=== PATIENT | male | born 1965 | race Hispanic/Latino ===

== ENCOUNTER 2021-07-09 00:08 | Emergency (ER) | payer MEDICARE, OTHER ==
[~2021-07-09] VITALS: Ht 172.7 cm; Wt 97.5 kg
[2021-07-09 00:23] LABS: BASOPHILS % 0.4 % (0.0-1.0); EOSINOPHILS # (AUTO) 0.1 (0.0-0.4); EOSINOPHILS % 0.5 % (0.0-6.0); HEMATOCRIT 45.9 % (38.2-49.6); HEMOGLOBIN 15.4 g/dL (14.0-18.0); LYMPHOCYTES # (AUTO) 2.4 (1.0-3.2); LYMPHOCYTES % 25.9 % (18.0-39.1); MEAN CORPUSCULAR HGB CONC 33.6 g/dL (31-35); MEAN CORPUSCULAR VOLUME 92.4 fL (81-99); MONOCYTES % 10.9 % (4.4-11.3); NEUTROPHILS # (AUTO) 5.7 (2.1-6.9); NEUTROPHILS % 61.9 % (38.7-80.0); PLATELET COUNT 180 x10e3/uL (140-360); RED BLOOD COUNT 4.97 x10e6/uL (4.3-5.7); RED CELL DISTRIBUTION WIDTH 12.7 % (11.7-14.4)
[2021-07-09 00:40] LABS: ALBUMIN 3.8 g/dL (3.5-5.0); ALBUMIN/GLOBULIN RATIO 0.9 (0.8-2.0); ANION GAP 13.9 mmol/L (8-16); CALCIUM 9.4 mg/dL (8.4-10.2); CREATININE, SERUM 1.01 mg/dL (0.72-1.25); POTASSIUM 3.9 mmol/L (3.5-5.1)
[2021-07-09 00:44] LABS: CREATINE KINASE MB 0.4 ng/mL (0-5.0)
[2021-07-09 03:25] LABS: CREATINE KINASE 46 IU/L (30-200)
[2021-07-09 05:31] VITALS: BP 132/65
== END 2021-07-09 05:34 | disposition home or self-care (01) ==
LOC: ER 00:17
DX: R07.9 Chest pain, unspecified (principal)
CPT/HCPCS: 36415; 71045; 80053; 82550; 82553; 83880; 84484; 85025; 85379; 93005; 99284

== ENCOUNTER 2024-04-25 23:00 | Inpatient (IN) | payer MEDICARE ==
[~2024-04-25] VITALS: Ht 172.7 cm; Wt 112.8 kg
[2024-04-25] MEDS: ONDANSETRON HCL INJ 2MG/ML 2ML 2 MG/ML VIAL IV STA (23:23)
[2024-04-25 23:34] LABS: BASOPHILS % 0.3 % (0.0-1.0); EOSINOPHILS # (AUTO) 0.1 (0.0-0.4); EOSINOPHILS % 0.5 % (0.0-6.0); HEMATOCRIT 45.8 % (38.2-49.6); HEMOGLOBIN 15.8 g/dL (14.0-18.0); LYMPHOCYTES # (AUTO) 2.6 (1.0-3.2); LYMPHOCYTES % 26.7 % (18.0-39.1); MEAN CORPUSCULAR HGB CONC 34.5 g/dL (31-35); MEAN CORPUSCULAR VOLUME 89.8 fL (81-99); MONOCYTES # (AUTO) 1.2 (0.2-0.8); MONOCYTES % 12.1 % (4.4-11.3); NEUTROPHILS # (AUTO) 5.9 (2.1-6.9); NEUTROPHILS % 59.6 % (38.7-80.0); PLATELET COUNT 187 x10e3/uL (140-360); RED CELL DISTRIBUTION WIDTH 12.5 % (11.7-14.4); WHITE BLOOD COUNT 9.85 x10e3/uL (4.8-10.8)
[2024-04-25] MEDS: DICYCLOMINE HCL 20 MG/2 ML VIAL IM ONE (23:37)
[2024-04-25 23:48] LABS: ALANINE AMINOTRANSFERASE 63 IU/L (0-55); ALBUMIN 3.9 g/dL (3.5-5.0); ALBUMIN/GLOBULIN RATIO 0.9 (0.8-2.0); ALKALINE PHOSPHATASE 94 IU/L (40-150); ANION GAP 15.7 mmol/L (8-16); BILIRUBIN,TOTAL 0.8 mg/dL (0.2-1.2); BLOOD UREA NITROGEN 10 mg/dL (7-26); BUN/CREATININE RATIO 12 (6-25); CALCIUM 9.3 mg/dL (8.4-10.2); CARBON DIOXIDE 24 mmol/L (22-29); CHLORIDE 101 mmol/L (98-107); CREATINE KINASE 43 IU/L (30-200); CREATININE, SERUM 0.84 mg/dL (0.72-1.25); EST GLOMERULAR FILTRATION RATE 100 ML/MIN (>=60); GLUCOSE 198 mg/dL (74-118); POTASSIUM 3.7 mmol/L (3.5-5.1); SODIUM 137 mmol/L (136-145); TOTAL PROTEIN 8.4 g/dL (6.5-8.1)
[2024-04-26] VITALS (9 sets, daily range): BP systolic 134–151; BP diastolic 88; PULSE 75–95; RESP 14–22; TEMP 97.9–98.2; O2SAT 92–96
[2024-04-26] MEDS ORDERED: IOPAMIDOL 370 MG/ML 100 ML INFUS..BTL INJ ONE (00:13)
[2024-04-26 00:22] LABS: TROPONIN I < 0.001 ng/mL (0-0.300)
[2024-04-26] MEDS ORDERED: DEXTROSE 50% SYRINGE 50 ML IV PRN (01:45)
[2024-04-26] MEDS ORDERED: ONDANSETRON HCL INJ 2MG/ML 2ML 2 MG/ML VIAL IV PRN (01:45)
[2024-04-26] MEDS: SODIUM CHLORIDE 0.9% 1000ML 1,000 ML IV SCH ×2 (02:27→20:11)
[2024-04-26] MEDS: INSULIN REGULAR, HUMAN 100 UNIT/1 ML SQ SCH (07:30)
[2024-04-26] MEDS ORDERED: MIDAZOLAM HCL 2 MG/2 ML VIAL ONE (11:51)
[2024-04-26] MEDS ORDERED: FENTANYL CITRATE/PF 100MCG/2 ML INJ ONE (11:51)
[2024-04-26] MEDS ORDERED: SEVOFLURANE INHAL SOLN 250 ML PEN BTL ONE (11:52)
[2024-04-26] MEDS ORDERED: BUPIVACAINE HCL 0.5% INJ 30 ML VIAL INJ ONE (12:12)
[2024-04-26] MEDS ORDERED: NEOSTIGMINE 1 MG/ML 10ML VIAL ONE (13:43)
[2024-04-26] MEDS ORDERED: ROCURONIUM BROMIDE 10 MG/ML 5ML VIAL IV ONE (13:43)
[2024-04-26] MEDS ORDERED: LIDOCAINE HCL 2% LOCAL INJ 5 ML SDV VIAL INJ ONE (13:43)
[2024-04-26] MEDS ORDERED: METOCLOPRAMIDE HCL 10 MG/2ML VIAL ONE (13:43)
[2024-04-26] MEDS ORDERED: PROPOFOL IV EMULSION 10 MG/ML 20 ML VIAL ONE (13:43)
[2024-04-26] MEDS ORDERED: GLYCOPYRROLATE INJ 0.2 MG/ML VIAL ONE (13:43)
[2024-04-26] MEDS ORDERED: ONDANSETRON HCL INJ 2MG/ML 2ML 2 MG/ML VIAL ONE (13:43)
[2024-04-26] MEDS ORDERED: KETOROLAC TROMETHAMINE 30 MG/ML VIAL ONE (13:43)
[2024-04-26] MEDS: HYDRALAZINE HCL 20 MG/ML VIAL IV PRN (21:50)
[2024-04-26] MEDS: HYDROCODONE/APAP 5MG-325MG TAB PO PRN (23:02)
[2024-04-27] VITALS (11 sets, daily range): BP systolic 134–165; BP diastolic 74–90; PULSE 115–130; RESP 16–20; TEMP 98.3–100.4; O2SAT 92–98
[2024-04-27] MEDS: ONDANSETRON HCL INJ 2MG/ML 2ML 2 MG/ML VIAL IV PRN (02:19)
[2024-04-27] MEDS: Morphine 4mg INJECTION 4 MG/ML INJ IV PRN (02:20)
[2024-04-27] MEDS ORDERED: MELATONIN 3 MG TAB PO PRN (02:30)
[2024-04-27] MEDS ORDERED: PIPERACILLIN/TAZOBACTAM 3.375 GM VIAL ONE (04:41)
[2024-04-27 05:44] LABS: BASOPHILS % 0.2 % (0.0-1.0); HEMATOCRIT 43.2 % (38.2-49.6); HEMOGLOBIN 14.5 g/dL (14.0-18.0); LYMPHOCYTES # (AUTO) 1.5 (1.0-3.2); MEAN CORPUSCULAR HEMOGLOBIN 30.8 pg (28-32); MEAN CORPUSCULAR HGB CONC 33.6 g/dL (31-35); MEAN CORPUSCULAR VOLUME 91.7 fL (81-99); MONOCYTES # (AUTO) 1.8 (0.2-0.8); MONOCYTES % 13.8 % (4.4-11.3); NEUTROPHILS # (AUTO) 9.5 (2.1-6.9); NEUTROPHILS % 73.4 % (38.7-80.0); PLATELET COUNT 149 x10e3/uL (140-360); RED BLOOD COUNT 4.71 x10e6/uL (4.3-5.7); WHITE BLOOD COUNT 12.87 x10e3/uL (4.8-10.8)
[2024-04-27 06:18] LABS: TROPONIN I < 0.001 ng/mL (0-0.300)
[2024-04-27 06:35] LABS: CREATINE KINASE 182 IU/L (30-200)
[2024-04-27 06:45] LABS: ALBUMIN 3.3 g/dL (3.5-5.0); ALBUMIN/GLOBULIN RATIO 0.8 (0.8-2.0); ANION GAP 14.5 mmol/L (8-16); BILIRUBIN,TOTAL 2.4 mg/dL (0.2-1.2); CALCIUM 8.5 mg/dL (8.4-10.2); CREATININE, SERUM 0.76 mg/dL (0.72-1.25); POTASSIUM 3.5 mmol/L (3.5-5.1); TOTAL PROTEIN 7.4 g/dL (6.5-8.1)
[2024-04-27 06:54] LABS: MAGNESIUM 1.9 MG/DL (1.3-2.1); PHOSPHORUS 2.2 MG/DL (2.3-4.7)
[2024-04-27 07:17] LABS: FREE T4 (FREE THYROXINE) 1.08 ng/dL (0.8-1.8); THYROID STIMULATING HORMONE 0.266 uIU/mL (0.350-4.940)
[2024-04-27] MEDS: POTASSIUM PHOSPHATE 15 MM in SODIUM CHLORIDE 0.9% 250ML 250 ML IV SCH (12:17)
[2024-04-27] MEDS ORDERED: METFORMIN HCL750 MG PO (16:00)
[2024-04-27] MEDS ORDERED: LOSARTAN-HCTZ1 EACH PO (16:00)
[2024-04-27] MEDS ORDERED: LEVETIRACETAM750 MG PO (16:00)
[2024-04-27] MEDS ORDERED: LATANOPROST2.5 ML OU (16:00)
[2024-04-27] MEDS ORDERED: ROSUVASTATIN CAL5 MG PO (16:00)
[2024-04-27] MEDS ORDERED: ACETAMINOPHEN 325 MG TAB PO PRN (20:30)
[2024-04-27] MEDS: METFORMIN HCL 750 MG TAB ER PO SCH (21:00)
[2024-04-27] MEDS: LATANOPROST(OPTH) 2.5 ML BTL OU SCH (21:00)
[2024-04-27] MEDS: CRESTOR 10MG PO SCH (22:23)
[2024-04-27] MEDS: LOSARTAN POTASSIUM 100 MG TAB PO SCH (22:23)
[2024-04-27] MEDS: LEVETIRACETAM 500 MG TAB PO SCH (22:24)
[2024-04-28] VITALS (10 sets, daily range): BP systolic 121–153; BP diastolic 78–89; PULSE 97–107; RESP 17–20; TEMP 98.4–99; O2SAT 92–94
[2024-04-28 06:05] LABS: HEMATOCRIT 39.2 % (38.2-49.6); HEMOGLOBIN 12.9 g/dL (14.0-18.0); MEAN CORPUSCULAR HEMOGLOBIN 30.9 pg (28-32); MEAN CORPUSCULAR HGB CONC 32.9 g/dL (31-35); PLATELET COUNT 126 x10e3/uL (140-360); RED BLOOD COUNT 4.17 x10e6/uL (4.3-5.7); RED CELL DISTRIBUTION WIDTH 13.2 % (11.7-14.4); WHITE BLOOD COUNT 12.13 x10e3/uL (4.8-10.8)
[2024-04-28 06:25] LABS: ALBUMIN 2.9 g/dL (3.5-5.0); ALBUMIN/GLOBULIN RATIO 0.7 (0.8-2.0); ANION GAP 10.6 mmol/L (8-16); BILIRUBIN,TOTAL 1.5 mg/dL (0.2-1.2); CREATININE, SERUM 0.74 mg/dL (0.72-1.25); POTASSIUM 3.6 mmol/L (3.5-5.1); TOTAL PROTEIN 6.8 g/dL (6.5-8.1)
[2024-04-28 09:21] LABS: LYMPHOCYTES % (MANUAL) 19 % (19-48); MONOCYTES % (MANUAL) 14 % (3.4-9.0); NEUTROPHILS % (MANUAL) 67 % (40-74); PLATELET ESTIMATE SLIGHTLY DECREASED; PLATELET MORPHOLOGY COMMENT NORMAL; RBC MORPHOLOGY COMMENT NORMAL
[2024-04-29] VITALS (11 sets, daily range): BP systolic 135–180; BP diastolic 90–101; PULSE 96–102; RESP 17–21; TEMP 97.8–99.1; O2SAT 92–100
[2024-04-29] MEDS ORDERED: SODIUM CHLORIDE 0.9% 1000ML 1,000 ML IV SCH (01:00)
[2024-04-29 06:08] LABS: BASOPHILS % 0.2 % (0.0-1.0); EOSINOPHILS % 0.2 % (0.0-6.0); HEMATOCRIT 39.7 % (38.2-49.6); HEMOGLOBIN 13.4 g/dL (14.0-18.0); LYMPHOCYTES # (AUTO) 2.5 (1.0-3.2); LYMPHOCYTES % 19.3 % (18.0-39.1); MEAN CORPUSCULAR HEMOGLOBIN 31.2 pg (28-32); MEAN CORPUSCULAR HGB CONC 33.8 g/dL (31-35); MEAN CORPUSCULAR VOLUME 92.3 fL (81-99); MONOCYTES # (AUTO) 1.6 (0.2-0.8); MONOCYTES % 12.8 % (4.4-11.3); NEUTROPHILS # (AUTO) 8.6 (2.1-6.9); PLATELET COUNT 137 x10e3/uL (140-360); RED CELL DISTRIBUTION WIDTH 13.1 % (11.7-14.4); WHITE BLOOD COUNT 12.83 x10e3/uL (4.8-10.8)
[2024-04-29 06:44] LABS: ANION GAP 10.4 mmol/L (8-16); CALCIUM 8.2 mg/dL (8.4-10.2); CREATININE, SERUM 0.69 mg/dL (0.72-1.25)
[2024-04-29 06:47] LABS: POTASSIUM 3.4 mmol/L (3.5-5.1)
[2024-04-29] MEDS ORDERED: ONDANSETRON HCL 4 MG ORAL DISINTEGRATING TAB PO PRN (11:45)
[2024-04-30] VITALS: BP 145/87; PULSE 94; RESP 17; TEMP 96.7; O2SAT 91
[2024-04-30 05:27] LABS: BASOPHILS % 0.2 % (0.0-1.0); EOSINOPHILS # (AUTO) 0.1 (0.0-0.4); HEMATOCRIT 40.9 % (38.2-49.6); HEMOGLOBIN 13.5 g/dL (14.0-18.0); LYMPHOCYTES # (AUTO) 2.2 (1.0-3.2); LYMPHOCYTES % 19.7 % (18.0-39.1); MEAN CORPUSCULAR HEMOGLOBIN 30.7 pg (28-32); MONOCYTES # (AUTO) 1.3 (0.2-0.8); MONOCYTES % 11.5 % (4.4-11.3); NEUTROPHILS # (AUTO) 7.3 (2.1-6.9); PLATELET COUNT 165 x10e3/uL (140-360); RED CELL DISTRIBUTION WIDTH 13.2 % (11.7-14.4)
[2024-04-30 06:03] LABS: ANION GAP 13.5 mmol/L (8-16); CALCIUM 8.7 mg/dL (8.4-10.2); CREATININE, SERUM 0.67 mg/dL (0.72-1.25); MAGNESIUM 2.2 MG/DL (1.3-2.1); PHOSPHORUS 2.6 MG/DL (2.3-4.7); POTASSIUM 3.5 mmol/L (3.5-5.1)
[2024-04-30 06:15] VITALS: PULSE 98; RESP 20; O2SAT 97
[2024-04-30 08:24] VITALS: BP 144/95; PULSE 93; RESP 19; TEMP 98; O2SAT 96
[2024-04-30 08:45] VITALS: BP 144/95; PULSE 93; RESP 19; TEMP 98; O2SAT 96
[2024-04-30] MEDS: METOPROLOL SUCCINATE 25 MG TAB XL PO SCH (10:39)
[2024-04-30 11:49] VITALS: BP 150/89; PULSE 98; RESP 18; TEMP 98.3; O2SAT 95
[2024-04-30] MEDS ORDERED: TOPROL XL25 MG PO (13:36)
[2024-04-30] MEDS ORDERED: MELATONIN3 MG PO (13:36)
[2024-04-30] MEDS ORDERED: ONDANSETRON ODT4 MG PO (13:36)
[2024-04-30] MEDS ORDERED: ACETAMINOPHEN325 M1 PO (13:36)
[2024-04-30] MEDS: POTASSIUM CHLORIDE 10MEQ EA PO ONE (13:54)
[2024-05-01] MEDS ORDERED: PANTOPRAZOLE SOD 40 MG TABEC PO SCH (07:30)
== END 2024-04-30 15:05 | disposition home or self-care (01) | DRG 417 ==
LOC: ER 23:05 → ERHOLD 04-26 01:31 → MED/SURG2 04-26 15:18
PROVIDERS: ADMIT Internal Medicine; ATTEND Internal Medicine
PROC: 0FT44ZZ Resection of Gallbladder, Percutaneous Endoscopic Approach (ICD-10-PCS; principal; 2024-04-26 12:39)
DX: K80.00 Calculus of gallbladder with acute cholecystitis without obstruction (principal); G93.41 Metabolic encephalopathy; E87.20 Acidosis, unspecified; I47.10 Supraventricular tachycardia, unspecified; G40.909 Epilepsy, unspecified, not intractable, without status epilepticus; E11.9 Type 2 diabetes mellitus without complications; E78.5 Hyperlipidemia, unspecified; R74.01 Elevation of levels of liver transaminase levels; I10 Essential (primary) hypertension; E78.49 Other hyperlipidemia; H40.9 Unspecified glaucoma; E66.9 Obesity, unspecified; Z68.37 Body mass index [BMI] 37.0-37.9, adult; Z79.84 Long term (current) use of oral hypoglycemic drugs; Z85.841 Personal history of malignant neoplasm of brain; Z80.3 Family history of malignant neoplasm of breast
CPT/HCPCS: 36415; 70450; 71045; 74177; 80048; 80053; 80061; 82550; 82948; 83036; 83605; 83690; 83735; 84100; 84439; 84443; 84484; 85007; 85025; 85027; 87040; 88304; 93005; 94799; 96372; 99285; J0360; J1885; J2001; J2250; J2270; J2405; J2470; J2543; J2710; J2765; J7030; J7050; Q9967